=== PATIENT | female | born 1950 | race Caucasian/White ===

== ENCOUNTER → 2024-03-10 | Outpatient (CLI) | payer BC, MEDICARE, SELFPAY ==
--- NOTE | 2024-03-10 | XR_ITS ---
Examination: Lumbar spine 3 views TECHNIQUE: Standing lateral neutral position, standing lateral flexion, standing lateral extension total 3 views Exam date and time: March 10, 2024 1318 hours INDICATIONS: Low back pain years, lumbar spine surgery 2015 FINDINGS: No lumbar fracture Diffuse advanced lumbar degenerative disc disease Essentially no range of motion between flexion and extension IMPRESSION: Diffuse advanced lumbar degenerative disc disease
--- NOTE | 2024-03-10 | XR_ITS ---
Examination: PA lateral chest 2 views TECHNIQUE: Upright PA lateral chest 2 views Exam date and time: March 10, 2024 1316 hours Comparison January 03, 2022 INDICATIONS: Preop lumbar spine surgery FINDINGS: Minimal prominence left ventricle No pneumonia or pulmonary edema Prominent osteopenia IMPRESSION: No active disease
--- NOTE | 2024-03-10 13:44 | EKG_ITS ---
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
[2024-03-10 14:08] LABS: INR 1.4 (0.9-1.3); Partial Thromboplastin Time 20.3 Seconds (22.0-36.0); Prothrombin Time 14.9 Seconds (9.0-12.2)
[2024-03-10 14:19] LABS: Alanine Aminotransferase 27 U/L (10-49); Albumin, Serum 4.9 gm/dL (3.4-4.8); Albumin/Globulin Ratio 2.2 (1.2-2.2); Alkaline Phosphatase 83 U/L (46-116); Anion Gap 7 (7-16); BUN/Creatinine Ratio 26 Ratio (12-20); Bilirubin,Total 0.5 mg/dL (0.3-1.2); Blood Urea Nitrogen 21 mg/dL (9-23); Calcium 9.7 mg/dL (8.3-10.6); Calcium (Corrected) 9.7 mg/dL (8.5-10.1); Carbon Dioxide 30.6 mMol/L (20.0-31.0); Chloride 103 mMol/L (98-107); Creatinine (Component) 0.8 mg/dL (0.6-1.3); Globulin 2.2 gm/dL (2.3-3.5); Glucose 98 mg/dL (74-106); Osmolality,Calculated 284 (275-295); Sodium 141 mMol/L (136-145); Total Protein 7.1 gm/dL (5.7-8.2); eGFR > 60 See Note
[2024-03-10 14:30] LABS: Aspartate Amino Transferase 21 U/L (0-34)
== END | disposition home or self-care (01) ==
LOC: CDIM 12:05 → COPL 13:25
PROVIDERS: PCP Internal Medicine; Referring Provider Internal Medicine; Visit Provider Radiology Diagnostic Radiology
DX: Z01.818 Encounter for other preprocedural examination (principal); I10 Essential (primary) hypertension; M51.369 Other intervertebral disc degeneration, lumbar region without mention of lumbar back pain or lower extremity pain; I25.10 Atherosclerotic heart disease of native coronary artery without angina pectoris
CPT/HCPCS: 36415; 71046; 72120; 80053; 85610; 85730; 93005

== ENCOUNTER 2024-05-11 10:11 | Outpatient (AMB) | payer BC, MEDICARE, SELFPAY ==
--- NOTE | 2024-05-11 10:38 | PD.ORTHCLVIS ---
Vital signs 05/11/24 10:39 Height 1.63 m Height Method Stated Weight 67.755 kg Weight Measurement Method Standing Scale BMI 25.6 BP 157/83 H Blood Pressure Source Automatic Cuff Blood Pressure Location Left Upper Arm Position Sitting Respiration 18 Pulse 72 Pulse Source Monitor Temp 95.9 F L Temp Source Temporal Artery Scan Pulse Oximetry (%) 98 Oxygen Delivery Method Room Air Med/Allergies Allergies & Medications Allergies rofecoxib (From Vioxx) Allergy (Verified 05/11/24 10:39) Rash Medication Reconciliation azelastine 137 mcg-fluticasone 50 mcg/spray nasal spray 1 spray intranasal BID 07/03/17 [History Confirmed 05/11/24] cetirizine 10 mg capsule (Zyrtec) 10 mg PO UD 07/03/17 [History Confirmed 05/11/24] coenzyme Q10 100 mg capsule (CoQ-10) 100 mg PO QDAY 07/03/17 [History Confirmed 05/11/24] esomeprazole magnesium 20 mg capsule,delayed release (Nexium) 20 mg PO QDAY 07/03/17 [History Confirmed 05/11/24] estradiol 0.5 mg tablet 0.5 mg PO QDAY 07/03/17 [History Confirmed 05/11/24] levothyroxine 112 mcg tablet 112 mcg PO QDAY 07/03/17 [History Confirmed 05/11/24] medroxyprogesterone 2.5 mg tablet 2.5 mg PO QDAY 07/03/17 [History Confirmed 05/11/24] mometasone-formoterol HFA 200 mcg-5 mcg/actuation aerosol inhaler (Dulera) 2 puff inhalation BID 07/03/17 [History Confirmed 05/11/24] montelukast 10 mg tablet 10 mg PO QPM 07/03/17 [History Confirmed 05/11/24] amlodipine 5 mg tablet 5 mg PO BID 07/02/23 [History Confirmed 05/11/24] carvedilol 6.25 mg tablet 6.25 mg PO BID 07/02/23 [History Confirmed 05/11/24] lisinopril 10 mg tablet 10 mg PO QDAY 07/02/23 [History Confirmed 05/11/24] ticagrelor 90 mg tablet (Brilinta) 90 mg PO BID #60 tabs 07/02/23 [Rx Confirmed 05/11/24] tramadol 100 mg tablet 100 mg PO QDAY 07/02/23 [History Confirmed 05/11/24] tramadol 50 mg tablet 50 mg PO TID PRN Pain 07/02/23 [History Confirmed 05/11/24] Exam Exam Patient is in no acute distress and is cooperative with the examination today. Patient has antalgic gait Breathing is nonlabored. In no respiratory distress. Bilateral extremities were evaluated and demonstrates sensation intact to light touch. Palpable pedal pulses are present. No significant edema is present. Bilateral hips were examined. The patient has no pain with log roll of the hips. Internal rotation to 30 degrees and external rotation to 30 degrees is painless. Negative FADIR. Left knee was examined today. The right knee is in reasonable alignment. Range of motion from 0-120 degrees. Knee is stable to varus and valgus as well as AP translation with <5mm. Patient has a negative McMurrays. There is no pain with patellofemoral compression and no crepitus noted. The knee is nontender to palpation. Right knee range of motion is 0 to 110 degrees. She is significantly unstable in both extension and even more in flexion in both the AP plane and medial lateral plane. I can only view 1 view of the right knee. There is a radiolucency on the lateral aspect of the tibia. I do want to see the prior x-rays to see if there is subsidence or migration of the component Assessment and Plan Problem List (1) Pain in right knee: Status: Acute (2) Recurrent right knee instability: Status: Acute Plan: Janie is a 73-year-old female with right knee instability status post right total knee replacement. The pain is not there all the time but she is significantly unsteady stable on the right side. I would like to get x-rays that are new as well as the older ones to see if the radiolucency is new or old. She would like to do a smaller surgery if possible. She does not want a revision total knee replacement and just wants a liner exchange. I I discussed with her that this would depend on if the component was loose. 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 (8231-5199) MA Intake Visit Data Collection New Patient or Established: New Patient (never been to [facility]) Reason for Visit:: RIGHT KNEE PAIN Seen by Clinical Staff ONLY (RN/MA): No Wrapper Layer Required: No PCP or OBGYN visit in last 3 months: Yes Hx Now: No Do You Feel Safe at Home: Yes Authorities Contacted: N/A Questionairres Past Medical History Past Medical History Have you ever been diagnosed with any of the following: Neurological Problems Seizures: No Cardiology Problems Myocardial Infarction: No Cardiac Arrhythmia: No Atrial Fibrillation: No Angina: No Heart Murmur: No Coronary Artery Disease: No Atherosclerotic Heart Disease: No Peripheral Vascular Disease: No Hypercholesterolemia: No Aneurysm: No Congestive Heart Failure: No Congenital Heart Disease: No Valvular Heart Disease: No Rheumatic Fever: No Cardiomyopathy: No Edema: No Pericarditis: No Cellulitis: No Deep Vein Thrombosis: No Hypertension: Yes Hypotension: No Varicose Veins: No Respiratory Problems Chronic Obstructive Pulmonary Disease (COPD): Yes Asthma: Yes (USES INHALER NEEDED) Sleep Apnea: Yes (USES CPAP MACHINE) Stomache/Intestinal Problems Hepatitis: No Genital/Urinary Problems Renal Disease: No Kidney Stones: No Reproductive Problems Breast Cancer: No Endometriosis: Yes Genital Herpes: No Gonorrhea: No Pelvic Inflammatory Disease: No Previous Pregnancies: Yes (X1) Syphilis: No Uterine Prolapse: No Musculoskeletal Problems Arthritis: Yes Osteoporosis: No Degenerative Disk Disease: Yes Carpal Tunnel Syndrome: No Head,Eye,Nose,Throat Problems Cataracts: Yes Glaucoma: No Blind: No Retinal Detachment: No Macular Degeneration: No Chronic Ear Infections: No Deafness: No Eye Prosthesis: No Endocrine Problems Diabetes Mellitus Type 1: No Diabetes Mellitus Type 2: No Hyperthyroidism: No Hypothyroidism: Yes Other Problems Down Syndrome: No Developmental Delay: No Shingles: No Falls: Yes Blood Transfusions: No Blood Transfusion Reaction: No Anesthesia Reactions: No MRSA: No Chicken Pox: Yes Measles: Yes Mumps: Yes Pertussis: No Cancer: No Surgical History Total Knee Replacement: Yes (RIGHT 2016) Hysterectomy: No Pacemaker: No Thyroidectomy: No Subjective Visit Visit for: new patient and knee Immunization / Flu Flu Vaccine in the Last 12 Months: Yes Flu Vaccine Exclusion Criteria: Already Received History of Present Illness Chief complaint: Right knee pain Janie is a pleasant 73-year-old female with right knee pain status post right total knee replacement. She has left knee arthritis as well. The right knee pain has been ongoing for 7 to 8 years. Is affecting her quality life and happiness. She reports it feels unstable and she has difficulty going up and down stairs Pain Pain level (0-10): 6 Pain duration: ALL DAY Pain location: inside (medial) and anterior Pain quality: dull, aching and other (specify) (CLICKING) Pain timing: increases with activity and stairs Associated signs & symptoms: weakness and other (specify) Ambulatory data Ambulatory device: none Treatments Improvement with previous injections: No Improvement with PT: No Improvement with NSAIDS: no Review of Systems Review of Systems: All systems negative unless otherwise noted in HPI.
[2024-05-11 10:39] VITALS: BP 157/83; PULSE 72; RESP 18; TEMP 35.5; O2SAT 98; BMI 25.6
== END 2024-05-11 11:05 | disposition home or self-care (01) ==
LOC: HODSRG 10:11
PROVIDERS: PCP Orthopaedic Surgery; Referring Provider Orthopaedic Surgery; Supervising Provider Orthopaedic Surgery Adult Reconstructive Orthopaedic Surgery; Visit Provider Orthopaedic Surgery Adult Reconstructive Orthopaedic Surgery
DX: M25.561 Pain in right knee (principal); M23.51 Chronic instability of knee, right knee; Z96.651 Presence of right artificial knee joint; I10 Essential (primary) hypertension; E03.9 Hypothyroidism, unspecified; G47.30 Sleep apnea, unspecified
CPT/HCPCS: 99203; G0463

== ENCOUNTER → 2024-05-12 | Outpatient (CLI) | payer BC, MEDICARE, SELFPAY ==
--- NOTE | 2024-05-12 12:55 | XR_ITS ---
Examination: Right knee 4 views TECHNIQUE: AP oblique lateral axial right knee 4 views Exam date and time: May 12, 2024 1304 hours INDICATIONS: Total right knee replacement 8 years ago, right knee pain FINDINGS: Total right knee arthroplasty. Satisfactory alignment No fracture No loosening of the prosthetic components No patellar dislocation IMPRESSION: Total right knee arthroplasty with satisfactory alignment
== END | disposition home or self-care (01) ==
LOC: CDIM 12:50
PROVIDERS: PCP Internal Medicine; Referring Provider Orthopaedic Surgery Adult Reconstructive Orthopaedic Surgery; Visit Provider Orthopaedic Surgery Adult Reconstructive Orthopaedic Surgery
DX: Z96.651 Presence of right artificial knee joint (principal)
CPT/HCPCS: 73564

== ENCOUNTER 2024-05-28 10:56 | Outpatient (AMB) | payer BC, MEDICARE, SELFPAY ==
--- NOTE | 2024-05-28 11:09 | PD.ORTHCLVIS ---
Vital signs 05/28/24 11:10 Height 1.63 m Height Method Stated Weight 68.748 kg Weight Measurement Method Standing Scale BMI 25.9 BP 159/69 H Blood Pressure Source Automatic Cuff Blood Pressure Location Left Upper Arm Position Sitting Respiration 18 Pulse 72 Pulse Source Monitor Temp 96.2 F L Temp Source Temporal Artery Scan Pulse Oximetry (%) 97 Oxygen Delivery Method Room Air Med/Allergies Allergies & Medications Allergies rofecoxib (From Vioxx) Allergy (Verified 05/28/24 11:15) Rash Medication Reconciliation azelastine 137 mcg-fluticasone 50 mcg/spray nasal spray 1 spray intranasal BID 07/03/17 [History Confirmed 05/28/24] cetirizine 10 mg capsule (Zyrtec) 10 mg PO UD 07/03/17 [History Confirmed 05/28/24] coenzyme Q10 100 mg capsule (CoQ-10) 100 mg PO QDAY 07/03/17 [History Confirmed 05/28/24] esomeprazole magnesium 20 mg capsule,delayed release (Nexium) 20 mg PO QDAY 07/03/17 [History Confirmed 05/28/24] estradiol 0.5 mg tablet 0.5 mg PO QDAY 07/03/17 [History Confirmed 05/28/24] levothyroxine 112 mcg tablet 112 mcg PO QDAY 07/03/17 [History Confirmed 05/28/24] medroxyprogesterone 2.5 mg tablet 2.5 mg PO QDAY 07/03/17 [History Confirmed 05/28/24] mometasone-formoterol HFA 200 mcg-5 mcg/actuation aerosol inhaler (Dulera) 2 puff inhalation BID 07/03/17 [History Confirmed 05/28/24] montelukast 10 mg tablet 10 mg PO QPM 07/03/17 [History Confirmed 05/28/24] amlodipine 5 mg tablet 5 mg PO BID 07/02/23 [History Confirmed 05/28/24] carvedilol 6.25 mg tablet 6.25 mg PO BID 07/02/23 [History Confirmed 05/28/24] lisinopril 10 mg tablet 10 mg PO QDAY 07/02/23 [History Confirmed 05/28/24] ticagrelor 90 mg tablet (Brilinta) 90 mg PO BID #60 tabs 07/02/23 [Rx Confirmed 05/28/24] tramadol 100 mg tablet 100 mg PO QDAY 07/02/23 [History Confirmed 05/28/24] tramadol 50 mg tablet 50 mg PO TID PRN Pain 07/02/23 [History Confirmed 05/28/24] Exam Exam Patient is in no acute distress and is cooperative with the examination today. Patient has antalgic gait Breathing is nonlabored. In no respiratory distress. Bilateral extremities were evaluated and demonstrates sensation intact to light touch. Palpable pedal pulses are present. No significant edema is present. Bilateral hips were examined. The patient has no pain with log roll of the hips. Internal rotation to 30 degrees and external rotation to 30 degrees is painless. Negative FADIR. Left knee was examined today. The right knee is in reasonable alignment. Range of motion from 0-120 degrees. Knee is stable to varus and valgus as well as AP translation with <5mm. Patient has a negative McMurrays. There is no pain with patellofemoral compression and no crepitus noted. The knee is nontender to palpation. Right knee range of motion is 0 to 110 degrees. She is significantly unstable in both extension and even more in flexion in both the AP plane and medial lateral plane. I reviewed her x-rays. There is a radiolucency on the lateral aspect of the tibia. We reviewed all her x-rays and this radiolucency is still there. I am not certain that there is been no change in positions as this is there on the immediate postoperative films as well Assessment and Plan Problem List (1) Pain in right knee: Status: Acute (2) Recurrent right knee instability: Status: Acute Plan: Janie is a 73-year-old female with right knee instability status post right total knee replacement. She has pain and instability in her right knee where she feels that she cannot trust it. On exam he feels both stable and flexion and extension. I would recommend upsizing the poly. She does not want a full revision I think it upsizing the pocket provide her with more stability and that this is a reasonable option. She reports that she has been unable to get surgery because her insurance says that she needs to get it done at [facility]. We will talk to her insurance company to figure out what is going on. She will certainly benefit from a upsizing of the following liner. We discussed the risks and benefits of surgery. We discussed that there is a risk of infection, loosening, and medical complications from surgery. She would like to proceed. We would need to talk to her insurance company first as she is not sure if she can get it done at the local hospital here. Advanced Care Planning Discussion Advance care planning discussed with:: patient Office Procedures GNS Level of Care Nursing/Assessment Patient Status: Established Patient Nursing Assessment/Reassesment: Medication Reconciliation, Update PMH in EMR and Vital Signs Coordination of Care: Complex Care and Chronic Disease 1-5, Education Complex Pt/Fam, Consent,records obtained, informed consent, Results/Orders obtained and Staff clarify orders Established Patient Charge Established Patient Point Assignment: 95 Established Patient Point Charge: EP Level 3 (80-115) MA Intake Visit Data Collection New Patient or Established: Established Patient (seen at [facility] within 3 years) Reason for Visit:: XRAY RESULTS/BL KNEE Seen by Clinical Staff ONLY (RN/MA): No Video Systems Engineer Required: No PCP or OBGYN visit in last 3 months: Yes Hx Now: No Do You Feel Safe at Home: Yes Authorities Contacted: N/A Questionairres Past Medical History Past Medical History Have you ever been diagnosed with any of the following: Neurological Problems Seizures: No Cardiology Problems Myocardial Infarction: No Cardiac Arrhythmia: No Atrial Fibrillation: No Angina: No Heart Murmur: No Coronary Artery Disease: No Atherosclerotic Heart Disease: No Peripheral Vascular Disease: No Hypercholesterolemia: No Aneurysm: No Congestive Heart Failure: No Congenital Heart Disease: No Valvular Heart Disease: No Rheumatic Fever: No Cardiomyopathy: No Edema: No Pericarditis: No Cellulitis: No Deep Vein Thrombosis: No Hypertension: Yes Hypotension: No Varicose Veins: No Respiratory Problems Chronic Obstructive Pulmonary Disease (COPD): Yes Asthma: Yes (USES INHALER NEEDED) Sleep Apnea: Yes (USES CPAP MACHINE) Smoking: No Smoking Exposure: No Stomache/Intestinal Problems Hepatitis: No Genital/Urinary Problems Renal Disease: No Kidney Stones: No Reproductive Problems Breast Cancer: No Endometriosis: Yes Genital Herpes: No Gonorrhea: No Pelvic Inflammatory Disease: No Previous Pregnancies: Yes (X1) Syphilis: No Uterine Prolapse: No Musculoskeletal Problems Arthritis: Yes Osteoporosis: No Degenerative Disk Disease: Yes Carpal Tunnel Syndrome: No Head,Eye,Nose,Throat Problems Cataracts: Yes Glaucoma: No Blind: No Retinal Detachment: No Macular Degeneration: No Chronic Ear Infections: No Deafness: No Eye Prosthesis: No Endocrine Problems Diabetes Mellitus Type 1: No Diabetes Mellitus Type 2: No Hyperthyroidism: No Hypothyroidism: Yes Other Problems Down Syndrome: No Developmental Delay: No Shingles: No Falls: Yes Blood Transfusions: No Blood Transfusion Reaction: No Anesthesia Reactions: No MRSA: No Chicken Pox: Yes Measles: Yes Mumps: Yes Pertussis: No Cancer: No Surgical History Total Knee Replacement: Yes (RIGHT 2017) Hysterectomy: No Pacemaker: No Thyroidectomy: No Subjective Visit Visit for: follow up visit, knee (BILATERAL) and x-rays (RESULTS) Immunization / Flu Flu Vaccine in the Last 12 Months: No Flu Vaccine Exclusion Criteria: No Exclusion Criteria History of Present Illness Chief complaint: Right knee pain Janie is a pleasant 73-year-old female with right knee pain status post right total knee replacement. She has left knee arthritis as well. The right knee pain has been ongoing for 7 to 8 years. Thgis Is affecting her quality life and happiness. She reports it feels unstable and she has difficulty going up and down stairs We did obtain her Old x-rays and there is a radiolucency laterally that is consistent on all her x-rays. We did also obtain her op report and there is certainly room to go up in size as she feels unstable in both flexion and extension Pain Pain level (0-10): 8 Pain duration: CONSTANT Pain location: inside (medial) Pain quality: aching Pain timing: increases with activity and stairs Associated signs & symptoms: none Ambulatory data Ambulatory device: none Treatments Improvement with previous injections: No Improvement with PT: No Improvement with NSAIDS: no Review of Systems Review of Systems: All systems negative unless otherwise noted in HPI.
[2024-05-28 11:10] VITALS: BP 159/69; PULSE 72; RESP 18; TEMP 35.7; O2SAT 97; BMI 25.9
== END 2024-05-28 11:23 | disposition home or self-care (01) ==
LOC: HODSRG 10:56
PROVIDERS: PCP Orthopaedic Surgery; Referring Provider Orthopaedic Surgery; Supervising Provider Orthopaedic Surgery Adult Reconstructive Orthopaedic Surgery; Visit Provider Orthopaedic Surgery Adult Reconstructive Orthopaedic Surgery
DX: M25.361 Other instability, right knee (principal); Z96.651 Presence of right artificial knee joint
CPT/HCPCS: 99213; G0463

== ENCOUNTER 2024-06-14 05:30 | Day surgery (SDC) | payer BC, MEDICARE, SELFPAY ==
[2024-06-09 10:40] VITALS: BMI 26.1
[2024-06-09 12:32] LABS: Basophils # (Auto) 0.1 Thou/mm3 (0.0-0.2); Basophils % (Auto) 1 % (0-2.5); Eosinophils # (Auto) 0.4 Thou/mm3 (0.0-0.5); Eosinophils % (Auto) 7 % (0-10); Hematocrit 39.9 % (36.0-46.0); Immature Granulocytes % (Auto) 0 % (0-0); Immature Granulocytes Auto 0.02 Thou/mm3 (0.00-0.00); Lymphocytes # (Auto) 1.6 Thou/mm3 (1.0-4.8); Lymphocytes % (Auto) 31 % (10-50); Mean Corpuscular HGB Conc 32.6 g/dl (31.0-37.0); Mean Corpuscular Hemoglobin 30.7 pg (25.0-35.0); Mean Corpuscular Volume 94 fL (80-100); Monocytes # (Auto) 0.6 Thou/mm3 (0.0-0.8); Monocytes % (Auto) 12 % (0-12); Neutrophils # (Auto) 2.6 Thou/mm3 (1.8-7.7); Neutrophils % (Auto) 49 % (37-80); Nucleated Red Blood Cell % 0 /100 WBC (0); Platelet Count 193 Thou/mm3 (140-440); RDW Standard Deviation 44.2 fL (36.4-46.3); Red Blood Count 4.23 Miln/mm3 (4.00-5.20); White Blood Count 5.3 Thou/mm3 (3.6-11.0)
[2024-06-09 12:41] LABS: Alanine Aminotransferase 21 U/L (10-49); Albumin, Serum 4.4 gm/dL (3.4-4.8); Albumin/Globulin Ratio 1.8 (1.2-2.2); Alkaline Phosphatase 73 U/L (46-116); Anion Gap 8 (7-16); Aspartate Amino Transferase 30 U/L (0-34); BUN/Creatinine Ratio 24 Ratio (12-20); Bilirubin,Total 0.6 mg/dL (0.3-1.2); Blood Urea Nitrogen 22 mg/dL (9-23); Calcium 9.3 mg/dL (8.3-10.6); Calcium (Corrected) 9.3 mg/dL (8.5-10.1); Carbon Dioxide 29.1 mMol/L (20.0-31.0); Chloride 103 mMol/L (98-107); Creatinine (Component) 0.9 mg/dL (0.6-1.3); Estimated Creatinine Clearance 52.3 mL/min (>60); Globulin 2.5 gm/dL (2.3-3.5); Glucose 98 mg/dL (74-106); Osmolality,Calculated 282 (275-295); Partial Thromboplastin Time 26.2 Seconds (22.0-36.0); Potassium 4.5 mMol/L (3.4-5.1); Prothrombin Time 11.2 Seconds (9.0-12.2); Sodium 140 mMol/L (136-145); Total Protein 6.9 gm/dL (5.7-8.2); eGFR > 60 See Note
--- NOTE | 2024-06-11 14:54 | SUR.PREOP ---
Cardiac history and records reviewed with Dr Carson.
[2024-06-14] VITALS (14 sets, daily range): BP systolic 123–160; BP diastolic 61–99; PULSE 58–75; RESP 14–20; TEMP 36.3–36.7; O2SAT 96–100; BMI 25.8
[2024-06-14] MEDS: ACETAMINOPHEN 325 MG TABLET 650 MG PO (06:46)
[2024-06-14] MEDS: PREGABALIN 75 MG CAPSULE PO (06:47)
[2024-06-14] MEDS: RINGERS LACTATED 1000 ML 1,000 ML 20 ML IV (06:48)
--- NOTE | 2024-06-14 07:30 | SUR.PREOP ---
Patient expressed gratitude for prayer before their procedure.
--- NOTE | 2024-06-14 08:44 | SUR.OPER ---
[id number] 15[facility] Posterior stabalized high flexion articular insert A/P 48 mm M/L 68 mm Ref: [id number] Lot: [id number] Exp. 04/05/33
--- NOTE | 2024-06-14 08:47 | XR_ITS ---
Examination: Right knee 2 views TECHNIQUE: Portable AP lateral right knee 2 views Exam date and time: June 14, 2024 0824 hours INDICATIONS: Postop knee replacement FINDINGS: Total right knee arthroplasty. Satisfactory alignment. Moderate osteopenia. No fracture IMPRESSION: Total right knee arthroplasty with satisfactory alignment
--- NOTE | 2024-06-14 08:50 | ESOP_ITS ---
Date of Procedure 06/14/24 Pre Op Diagnosis right knee instability Post Op Diagnosis right knee instability Procedure right knee polyethylene upsizing Findings knee instability Procedure Description Indications: Patient is a pleasant 74-year-old female with instability of the right knee. She underwent a total knee replacement and reports that she has been feeling like it gives out. We thus discussed upsizing of the poly. We discussed with her that we could do a full revision as well as there is a lucency in the tibia. We did look at prior films and it was stable and was there on immediate postoperative films. We discussed the risks of surgery including infection, persistent instability Procedure in detail: Patient was brought to the operating room. The right knee was prepped and draped in usual sterile fashion. A midline incision was made. A culture was taken. The original incision and made a medial parapatellar arthrotomy. Culture was taken from the femur. The knee was found to be unstable in both flexion and extension. We trialed different polys and the 15 mm poly provided adequate stability in both flexion and extension. I did not want upsize it anymore due to limiting extension. The patella tracks centrally. We then removed the trial and irrigated the knee copiously with Betadine and saline. We then inserted a 15 mm size 3?4 polyethylene into the knee. We then used the locking gun to insert the poly. The patient was closed in the usual sterile fashion Anesthesia GETA Drains nonw Implants villeda neph Pathology / specimen None Pathology comment: none Estimated Blood Loss 50 Disposition same day Surgeon Bryan Marcus MD Surgical Staff Operation Date: 06/14/24 07:30 Case Staff MEDICAL RECEPTIONIST MEDICAL ASSISTANT: Vidal Joiner RNinside sales coordinator: Erin Wells
--- NOTE | 2024-06-14 09:15 | SUR.PHASEI ---
0915 Patient arrived to recovery resting comfortably in [facility], on oxygen 8L via oxy mask with a nasal airway in place, breathing unlabored, vital signs stable, dressing intact to right lower extremity; prineo, abd, webril, jayne wraps, no bleeding noted, bilateral dorsalis pedis pulses present when palpated, patient has good circulation to right lower extremity; skin color normal for patient and warm to touch, capillary refil is one second to right toes, lung sounds clear upon auscultation, report received from Morales QUEVEDO/Zakia YORK/Vidal VOSS
--- NOTE | 2024-06-14 09:19 | SUR.PHASEI ---
0919 Post spinal anesthesia assessment via ice, patient has dermatome sensation at T8-costal margin
--- NOTE | 2024-06-14 09:30 | SUR.PHASEI ---
0930 XRAY complete per MD order
--- NOTE | 2024-06-14 09:55 | SUR.PHASEII ---
0903 Patient drinking water; tolerating well
--- NOTE | 2024-06-14 10:45 | SUR.PHASEII ---
1045 Patient ate a jello, apple sauce and drinking fluids; tolerating well, denies nausea
--- NOTE | 2024-06-14 11:30 | SUR.PHASEII ---
1130 Post spinal anesthesia complete, patient has dermatome sensation at S2-perineum
--- NOTE | 2024-06-14 11:38 | SUR.PHASEII ---
patient ate a sandwich, potato chips; tolerated well
--- NOTE | 2024-06-14 12:09 | SUR.PHASEII ---
1209 Patient cleared by physical therapy to proceed with discharge
--- NOTE | 2024-06-14 12:31 | SUR.PHASEII ---
Addendum entered by Hannah Sunshine RN 06/14/24 15:21: patient voided in the restroom prior to discharge Original Note: 1231 Patient meets discharge criteria from recovery, awake and alert, breathing unlabored, vital signs stable, denies pain, dressing intact; no bleeding noted, patient able to dress herself into her clothing, denies nausea, discharge instructions given to patient and patients with teach-back approach, both receptive, patients signed discharge instructions instructions. Patient given all her belongings prior to discharge, transported via wheelchair and left in a private vehicle.
== END 2024-06-14 12:31 | disposition home or self-care (01) ==
PROVIDERS: Anesthesiology; PCP Internal Medicine; Referring Provider Orthopaedic Surgery Adult Reconstructive Orthopaedic Surgery; Visit Provider Orthopaedic Surgery Adult Reconstructive Orthopaedic Surgery
PROC: (CPT 27487; principal; 2024-06-14 07:30)
DX: M25.361 Other instability, right knee (principal); I10 Essential (primary) hypertension; Z96.651 Presence of right artificial knee joint
CPT/HCPCS: 27486; 36415; 73560; 80053; 85025; 85610; 85730; 87070; 87075; 87205; 97162; A4217; C1776; J0131; J0690; J1100; J2250; J2371; J2405; J2704; J2795; J3010; J3490; J7030; J7120; J7999; A4648; A4649; A9270

== ENCOUNTER 2024-06-29 13:28 | Outpatient (AMB) | payer BC, MEDICARE, SELFPAY ==
--- NOTE | 2024-06-29 13:52 | PD.ORTHCLVIS ---
Vital signs 06/29/24 13:53 Height 1.63 m Height Method Stated Weight 67.642 kg Weight Measurement Method Standing Scale BMI 25.4 BP 139/75 H Blood Pressure Source Automatic Cuff Blood Pressure Location Right Upper Arm Position Sitting Respiration 18 Pulse 77 Pulse Source Monitor Temp 96.9 F Temp Source Temporal Artery Scan Pulse Oximetry (%) 96 Oxygen Delivery Method Room Air Med/Allergies Allergies & Medications Allergies rofecoxib (From Vioxx) Allergy (Verified 06/29/24 13:54) Rash Medication Reconciliation azelastine 137 mcg-fluticasone 50 mcg/spray nasal spray 1 spray intranasal BID 07/03/17 [History Confirmed 06/29/24] cetirizine 10 mg capsule (Zyrtec) 10 mg PO UD 07/03/17 [History Confirmed 06/29/24] levothyroxine 112 mcg tablet 112 mcg PO QDAY 07/03/17 [History Confirmed 06/29/24] montelukast 10 mg tablet 10 mg PO QPM 07/03/17 [History Confirmed 06/29/24] lisinopril 10 mg tablet 10 mg PO QDAY 07/02/23 [History Confirmed 06/29/24] ticagrelor 90 mg tablet (Brilinta) 90 mg PO BID #60 tabs 07/02/23 [Rx Confirmed 06/29/24] tramadol 100 mg tablet 100 mg PO QDAY 07/02/23 [History Confirmed 06/29/24] tramadol 50 mg tablet 50 mg PO Q12H PRN Pain 07/02/23 [History Confirmed 06/29/24] albuterol sulfate 90 mcg/actuation aerosol inhaler 2 inh inhalation Q6H PRN shortness of breath or wheezing 06/09/24 [History Confirmed 06/29/24] carvedilol 12.5 mg tablet 12.5 mg PO Q12H 06/09/24 [History Confirmed 06/29/24] estradiol 10 mcg vaginal tablet (Yuvafem) 10 mcg .Route 2 X WEEKLY 06/09/24 [History Confirmed 06/29/24] fluticasone fur. 100 mcg-umeclid 62.5 mcg-vilant 25 mcg inhalat.powder (Trelegy Ellipta) 1 inh inhalation Q24H 06/09/24 [History Confirmed 06/29/24] rosuvastatin 40 mg tablet 40 mg PO DAILY 06/09/24 [History Confirmed 06/29/24] acetaminophen 500 mg tablet (Acetaminophen Extra Strength) 1,000 mg (2 x 500 mg) PO Q6H PRN pain #90 tabs 06/14/24 [Rx Confirmed 06/29/24] aspirin 81 mg tablet,delayed release 81 mg PO BID #60 tabs 06/14/24 [Rx Confirmed 06/29/24] azerlastine 06/14/24 [History Confirmed 06/29/24] doxycycline hyclate 100 mg tablet 100 mg PO BID #14 tabs 06/14/24 [Rx Confirmed 06/29/24] gabapentin 300 mg capsule 300 mg PO .qhs #30 caps 06/14/24 [Rx Confirmed 06/29/24] sennosides 8.6 mg-docusate sodium 50 mg tablet (Senna-S) 1 tab-cap PO QDAY #30 tabs 06/14/24 [Rx Confirmed 06/29/24] oxycodone 5 mg tablet 5 mg PO Q6H PRN pain #28 tabs 06/21/24 [Rx Confirmed 06/29/24] Exam Exam Patient is in no acute distress and is cooperative with the examination today. Patient has antalgic gait Breathing is nonlabored. In no respiratory distress. Bilateral extremities were evaluated and demonstrates sensation intact to light touch. Palpable pedal pulses are present. No significant edema is present. Bilateral hips were examined. The patient has no pain with log roll of the hips. Internal rotation to 30 degrees and external rotation to 30 degrees is painless. Negative FADIR. Left knee was examined today. The right knee is in reasonable alignment. Range of motion from 0-120 degrees. Knee is stable to varus and valgus as well as AP translation with <5mm. Patient has a negative McMurrays. There is no pain with patellofemoral compression and no crepitus noted. The knee is nontender to palpation. Right knee range of motion is 0 to 110 degrees. Incision looks clean dry and intact I reviewed her x-rays. There is a radiolucency on the lateral aspect of the tibia. We reviewed all her x-rays and this radiolucency is still there. I am not certain that there is been no change in positions as this is there on the immediate postoperative films as well Assessment and Plan Problem List (1) Pain in right knee: Status: Acute (2) Recurrent right knee instability: Status: Acute Plan: Janie is a 73-year-old female with right knee instability status post right total knee replacement. She is status post revision knee replacement with upsizing of the poly. Advanced Care Planning Discussion Advance care planning discussed with:: patient Office Procedures GNS Level of Care Nursing/Assessment Patient Status: Established Patient Nursing Assessment/Reassesment: Medication Reconciliation, Update PMH in EMR and Vital Signs Coordination of Care: Complex Care and Chronic Disease 1-5, Education Complex Pt/Fam, Consent,records obtained, informed consent, Results/Orders obtained and Staff clarify orders Special Needs: Language special needs Established Patient Charge Established Patient Point Assignment: 95 Established Patient Point Charge: EP Level 3 (80-115) MA Intake Visit Data Collection New Patient or Established: Established Patient (seen at [facility] within 3 years) Reason for Visit:: 2 WEEK POST OP RIGHT KNEE REVISION Seen by Clinical Staff ONLY (RN/MA): No Verbal consent obtained for Telemed visit?: No Coating Technician Required: No PCP or OBGYN visit in last 3 months: Yes Hx Now: No Do You Feel Safe at Home: Yes Authorities Contacted: N/A Questionairres Past Medical History Past Medical History Have you ever been diagnosed with any of the following: Neurological Problems Seizures: No Cardiology Problems Myocardial Infarction: No Cardiac Arrhythmia: No Atrial Fibrillation: No Angina: No Heart Murmur: No Coronary Artery Disease: No Atherosclerotic Heart Disease: No Peripheral Vascular Disease: No Hypercholesterolemia: No Aneurysm: No Congestive Heart Failure: No Congenital Heart Disease: No Valvular Heart Disease: No Rheumatic Fever: No Cardiomyopathy: No Edema: No Pericarditis: No Cellulitis: No Deep Vein Thrombosis: No Hypertension: Yes Hypotension: No Varicose Veins: No Respiratory Problems Chronic Obstructive Pulmonary Disease (COPD): Yes Asthma: Yes (USES INHALER NEEDED) Sleep Apnea: Yes (USES CPAP MACHINE) Smoking: No Smoking Exposure: No Stomache/Intestinal Problems Hepatitis: No Gall Bladder Disease: Yes Gastroesophageal Reflux Disease: Yes Genital/Urinary Problems Renal Disease: No Kidney Stones: No Reproductive Problems Breast Cancer: No Endometriosis: Yes Genital Herpes: No Gonorrhea: No Pelvic Inflammatory Disease: No Previous Pregnancies: Yes (X1) Syphilis: No Uterine Prolapse: No Musculoskeletal Problems Arthritis: Yes Osteoporosis: No Degenerative Disk Disease: Yes Carpal Tunnel Syndrome: No Head,Eye,Nose,Throat Problems Cataracts: Yes Glaucoma: No Blind: No Retinal Detachment: No Macular Degeneration: No Chronic Ear Infections: No Deafness: No Eye Prosthesis: No Endocrine Problems Diabetes Mellitus Type 1: No Diabetes Mellitus Type 2: No Hyperthyroidism: No Hypothyroidism: Yes Other Problems Down Syndrome: No Developmental Delay: No Shingles: No Falls: Yes Blood Transfusions: No Blood Transfusion Reaction: No Anesthesia Reactions: No MRSA: No Chicken Pox: Yes Measles: Yes Mumps: Yes Pertussis: No Cancer: No Surgical History Total Knee Replacement: Yes (RIGHT 2017) Hysterectomy: No Pacemaker: No Thyroidectomy: No Subjective Visit Visit for: follow up visit, post op #1 and knee Immunization / Flu Flu Vaccine in the Last 12 Months: Yes Flu Vaccine Exclusion Criteria: Already Received History of Present Illness Chief complaint: 2 wk post op right knee revision Janie is a pleasant 73-year-old female with right knee pain status post right total knee replacement. We did upsizing of the poly and she is doing well Personal History Occupation: disabled Pain Pain level (0-10): 4 Pain duration: all day Pain location: inside (medial), outside (lateral), anterior and posterior Pain quality: sharp, dull and aching Pain timing: increases with activity Associated signs & symptoms: none Ambulatory data Ambulatory device: none Treatments Improvement with previous injections: No Improvement with PT: No Improvement with NSAIDS: no Review of Systems Review of Systems: All systems negative unless otherwise noted in HPI.
[2024-06-29 13:53] VITALS: BP 139/75; PULSE 77; RESP 18; TEMP 36.1; O2SAT 96; BMI 25.4
== END 2024-06-29 14:18 | disposition home or self-care (01) ==
LOC: HODSRG 13:28
PROVIDERS: PCP Orthopaedic Surgery; Referring Provider Orthopaedic Surgery; Supervising Provider Orthopaedic Surgery Adult Reconstructive Orthopaedic Surgery; Visit Provider Orthopaedic Surgery Adult Reconstructive Orthopaedic Surgery
DX: M25.561 Pain in right knee (principal); M23.51 Chronic instability of knee, right knee; Z96.651 Presence of right artificial knee joint; I10 Essential (primary) hypertension; G47.30 Sleep apnea, unspecified; K21.9 Gastro-esophageal reflux disease without esophagitis; J44.9 Chronic obstructive pulmonary disease, unspecified; E03.9 Hypothyroidism, unspecified
CPT/HCPCS: 99213; G0463

== ENCOUNTER 2024-07-22 13:34 | Outpatient (AMB) | payer BC, MEDICARE, SELFPAY ==
[2024-07-22 14:07] VITALS: BP 130/71; PULSE 73; RESP 19; TEMP 36.1; O2SAT 96; BMI 25.0
--- NOTE | 2024-07-22 14:07 | PD.ORTHCLVIS ---
Vital signs 07/22/24 14:07 Height 1.63 m Height Method Stated Weight 66.678 kg Weight Measurement Method Standing Scale BMI 25.0 BP 130/71 Blood Pressure Source Automatic Cuff Blood Pressure Location Right Upper Arm Position Sitting Respiration 19 Pulse 73 Pulse Source Monitor Temp 96.9 F Temp Source Temporal Artery Scan Pulse Oximetry (%) 96 Oxygen Delivery Method Room Air Med/Allergies Allergies & Medications Allergies rofecoxib (From Vioxx) Allergy (Verified 07/22/24 14:08) Rash Medication Reconciliation azelastine 137 mcg-fluticasone 50 mcg/spray nasal spray 1 spray intranasal BID 07/03/17 [History Confirmed 07/22/24] cetirizine 10 mg capsule (Zyrtec) 10 mg PO UD 07/03/17 [History Confirmed 07/22/24] levothyroxine 112 mcg tablet 112 mcg PO QDAY 07/03/17 [History Confirmed 07/22/24] montelukast 10 mg tablet 10 mg PO QPM 07/03/17 [History Confirmed 07/22/24] lisinopril 10 mg tablet 10 mg PO QDAY 07/02/23 [History Confirmed 07/22/24] ticagrelor 90 mg tablet (Brilinta) 90 mg PO BID #60 tabs 07/02/23 [Rx Confirmed 07/22/24] tramadol 100 mg tablet 100 mg PO QDAY 07/02/23 [History Confirmed 07/22/24] tramadol 50 mg tablet 50 mg PO Q12H PRN Pain 07/02/23 [History Confirmed 07/22/24] albuterol sulfate 90 mcg/actuation aerosol inhaler 2 inh inhalation Q6H PRN shortness of breath or wheezing 06/09/24 [History Confirmed 07/22/24] carvedilol 12.5 mg tablet 12.5 mg PO Q12H 06/09/24 [History Confirmed 07/22/24] estradiol 10 mcg vaginal tablet (Yuvafem) 10 mcg .Route 2 X WEEKLY 06/09/24 [History Confirmed 07/22/24] fluticasone fur. 100 mcg-umeclid 62.5 mcg-vilant 25 mcg inhalat.powder (Trelegy Ellipta) 1 inh inhalation Q24H 06/09/24 [History Confirmed 07/22/24] rosuvastatin 40 mg tablet 40 mg PO DAILY 06/09/24 [History Confirmed 07/22/24] acetaminophen 500 mg tablet (Acetaminophen Extra Strength) 1,000 mg (2 x 500 mg) PO Q6H PRN pain #90 tabs 06/14/24 [Rx Confirmed 07/22/24] aspirin 81 mg tablet,delayed release 81 mg PO BID #60 tabs 06/14/24 [Rx Confirmed 07/22/24] azerlastine 06/14/24 [History Confirmed 07/22/24] doxycycline hyclate 100 mg tablet 100 mg PO BID #14 tabs 06/14/24 [Rx Confirmed 07/22/24] gabapentin 300 mg capsule 300 mg PO .qhs #30 caps 06/14/24 [Rx Confirmed 07/22/24] sennosides 8.6 mg-docusate sodium 50 mg tablet (Senna-S) 1 tab-cap PO QDAY #30 tabs 06/14/24 [Rx Confirmed 07/22/24] oxycodone 5 mg tablet 5 mg PO Q6H PRN pain #28 tabs 06/21/24 [Rx Confirmed 07/22/24] Exam Exam Patient is in no acute distress and is cooperative with the examination today. Patient has antalgic gait Breathing is nonlabored. In no respiratory distress. Bilateral extremities were evaluated and demonstrates sensation intact to light touch. Palpable pedal pulses are present. No significant edema is present. Bilateral hips were examined. The patient has no pain with log roll of the hips. Internal rotation to 30 degrees and external rotation to 30 degrees is painless. Negative FADIR. Left knee was examined today. The right knee is in reasonable alignment. Range of motion from 0-120 degrees. Knee is stable to varus and valgus as well as AP translation with <5mm. Patient has a negative McMurrays. There is no pain with patellofemoral compression and no crepitus noted. The knee is nontender to palpation. Right knee range of motion is 0 to 110 degrees. Incision looks clean dry and intact Assessment and Plan Problem List (1) Pain in right knee: Status: Acute (2) Recurrent right knee instability: Status: Acute Plan: Janie is a 73-year-old female with right knee instability status post right total knee replacement. She is status post revision knee replacement with upsizing of the poly. She is doing well Advanced Care Planning Discussion Advance care planning discussed with:: patient Office Procedures GNS Level of Care Nursing/Assessment Patient Status: Established Patient Nursing Assessment/Reassesment: Medication Reconciliation, Update PMH in EMR and Vital Signs Coordination of Care: Complex Care and Chronic Disease 1-5, Education Complex Pt/Fam, Consent,records obtained, informed consent, Lab and Imaging orders, Results/Orders obtained and Staff clarify orders Established Patient Charge Established Patient Point Assignment: 110 Established Patient Point Charge: EP Level 3 (80-115) MA Intake Visit Data Collection New Patient or Established: Established Patient (seen at [facility] within 3 years) Reason for Visit:: F/U 6 WEEKS POST OP Seen by Clinical Staff ONLY (RN/MA): No Verbal consent obtained for Telemed visit?: No PCP or OBGYN visit in last 3 months: Yes Hx Now: No Do You Feel Safe at Home: Yes Authorities Contacted: N/A Questionairres Past Medical History Past Medical History Have you ever been diagnosed with any of the following: Neurological Problems Seizures: No Cardiology Problems Myocardial Infarction: No Cardiac Arrhythmia: No Atrial Fibrillation: No Angina: No Heart Murmur: No Coronary Artery Disease: Yes Atherosclerotic Heart Disease: No Peripheral Vascular Disease: No Hypercholesterolemia: Yes Aneurysm: No Congestive Heart Failure: No Congenital Heart Disease: No Valvular Heart Disease: No Rheumatic Fever: No Cardiomyopathy: No Edema: No Pericarditis: No Cellulitis: No Deep Vein Thrombosis: No Hypertension: Yes Hypotension: No Varicose Veins: No Respiratory Problems Chronic Obstructive Pulmonary Disease (COPD): Yes Asthma: Yes (USES INHALER NEEDED) Sleep Apnea: Yes (USES CPAP MACHINE) Smoking: No Smoking Exposure: No Stomache/Intestinal Problems Hepatitis: No Gall Bladder Disease: Yes Gastroesophageal Reflux Disease: Yes Genital/Urinary Problems Renal Disease: No Kidney Stones: No Reproductive Problems Breast Cancer: No Endometriosis: Yes Genital Herpes: No Gonorrhea: No Pelvic Inflammatory Disease: No Previous Pregnancies: Yes (X1) Syphilis: No Uterine Prolapse: No Musculoskeletal Problems Arthritis: Yes Osteoporosis: No Degenerative Disk Disease: Yes Carpal Tunnel Syndrome: No Head,Eye,Nose,Throat Problems Cataracts: Yes Glaucoma: No Blind: No Retinal Detachment: No Macular Degeneration: No Chronic Ear Infections: No Deafness: No Eye Prosthesis: No Endocrine Problems Diabetes Mellitus Type 1: No Diabetes Mellitus Type 2: No Hyperthyroidism: No Hypothyroidism: Yes Other Problems Down Syndrome: No Developmental Delay: No Shingles: No Falls: Yes Blood Transfusions: No Blood Transfusion Reaction: No Anesthesia Reactions: No MRSA: No Chicken Pox: Yes Measles: Yes Mumps: Yes Pertussis: No Cancer: No Surgical History Total Knee Replacement: Yes (RIGHT 2017) Hysterectomy: No Pacemaker: No Thyroidectomy: No Subjective Visit Visit for: follow up visit, post op #2 and knee Immunization / Flu Flu Vaccine in the Last 12 Months: Yes Flu Vaccine Exclusion Criteria: Already Received History of Present Illness Chief complaint: F/U 6 WKS POST OP Janie is a pleasant 73-year-old female with right knee pain status post right total knee replacement. 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
== END 2024-07-22 14:14 | disposition home or self-care (01) ==
LOC: HODSRG 13:34
PROVIDERS: PCP Orthopaedic Surgery; Referring Provider Orthopaedic Surgery; Supervising Provider Orthopaedic Surgery Adult Reconstructive Orthopaedic Surgery; Visit Provider Orthopaedic Surgery Adult Reconstructive Orthopaedic Surgery
DX: M25.561 Pain in right knee (principal); M23.51 Chronic instability of knee, right knee; Z96.651 Presence of right artificial knee joint; I10 Essential (primary) hypertension; E78.00 Pure hypercholesterolemia, unspecified; G47.30 Sleep apnea, unspecified; I25.10 Atherosclerotic heart disease of native coronary artery without angina pectoris
CPT/HCPCS: 99213; G0463

== ENCOUNTER → 2024-08-18 | Outpatient (CLI) | payer BC, MEDICARE, SELFPAY ==
[2024-08-18 09:58] LABS: Collection Type, Urine Clean Catch; WBC,Urine 0 /hpf (0-5)
[2024-08-18 10:28] LABS: Basophils # (Auto) 0.1 Thou/mm3 (0.0-0.2); Basophils % (Auto) 1 % (0-2.5); Eosinophils # (Auto) 0.2 Thou/mm3 (0.0-0.5); Eosinophils % (Auto) 5 % (0-10); Hematocrit 41.5 % (36.0-46.0); Hemoglobin 13.4 g/dL (12.0-16.0); Immature Granulocytes % (Auto) 0 % (0-0); Lymphocytes # (Auto) 1.2 Thou/mm3 (1.0-4.8); Lymphocytes % (Auto) 30 % (10-50); Mean Corpuscular HGB Conc 32.3 g/dl (31.0-37.0); Mean Corpuscular Hemoglobin 30.9 pg (25.0-35.0); Mean Corpuscular Volume 96 fL (80-100); Monocytes # (Auto) 0.5 Thou/mm3 (0.0-0.8); Monocytes % (Auto) 13 % (0-12); Neutrophils % (Auto) 51 % (37-80); Nucleated Red Blood Cell % 0 /100 WBC (0); Platelet Count 171 Thou/mm3 (140-440); RDW Standard Deviation 49.8 fL (36.4-46.3); Red Blood Count 4.34 Miln/mm3 (4.00-5.20); White Blood Count 3.9 Thou/mm3 (3.6-11.0)
[2024-08-18 10:33] LABS: Glucose Estimated Average 94 mg/dL (80-131); Hemoglobin A1C 4.9 % Hgb (4.8-6.0); Partial Thromboplastin Time 25.8 Seconds (22.0-36.0); Prothrombin Time 11.4 Seconds (9.0-12.2)
[2024-08-18 10:42] LABS: Bacteria,Urine Rare; Bilirubin,Urine Negative (Negative); Blood,Urine Negative (Negative); Clarity,Urine Clear (Clear/Hazy); Color,Urine Colorless (Lt Yel-Yel); Glucose, Urine Negative (Negative); Ketones,Urine Negative (Negative); Leukocyte Esterase,Urine Negative (Negative); Nitrite,Urine Negative (Negative); PH,Urine 7.5 (5.0-7.0); Protein,Urine Negative (Neg - Trace); RBC,Urine 2 /hpf (0-3); Specific Gravity,Urine 1.005 (1.001-1.035); Squamous Epithelial Cell,Urine < 1 /hpf (0-5); Urobilinogen,Urine Negative mg/dL (0.0-1.0)
[2024-08-18 10:42] LABS: Vitamin B12 532 pg/mL (211-911); Vitamin D 25 Hydroxy Total 58.7 ng/mL (7.3-40.2)
[2024-08-18 11:10] LABS: Alanine Aminotransferase 20 U/L (10-49); Albumin, Serum 4.3 gm/dL (3.4-4.8); Albumin/Globulin Ratio 1.9 (1.2-2.2); Alkaline Phosphatase 68 U/L (46-116); Anion Gap 8 (7-16); Aspartate Amino Transferase 26 U/L (0-34); BUN/Creatinine Ratio 20 Ratio (12-20); Bilirubin,Total 0.5 mg/dL (0.3-1.2); Blood Urea Nitrogen 16 mg/dL (9-23); Calcium 9.2 mg/dL (8.3-10.6); Calcium (Corrected) 9.2 mg/dL (8.5-10.1); Carbon Dioxide 28.7 mMol/L (20.0-31.0); Cardiac Risk Estimate 1.9 RATIO (3.7-5.6); Chloride 106 mMol/L (98-107); Cholesterol 140 mg/dL (132-200); Creatinine (Component) 0.8 mg/dL (0.6-1.3); Globulin 2.3 gm/dL (2.3-3.5); Glucose 101 mg/dL (74-106); HDL Cholesterol 74 mg/dL (40-60); LDL Cholesterol,Calculated 48 mg/dL (0-130); Osmolality,Calculated 286 (275-295); Potassium 4.4 mMol/L (3.4-5.1); Sodium 143 mMol/L (136-145); Thyroid Stimulating Hormone < 0.01 uIU/mL (0.55-4.78); Total Protein 6.6 gm/dL (5.7-8.2); Triglycerides 89 mg/dL (30-150); eGFR > 60 See Note
== END | disposition home or self-care (01) ==
LOC: COPL 08:59
PROVIDERS: PCP Internal Medicine; Referring Provider Physical Medicine & Rehabilitation Pain Medicine; Visit Provider Physical Medicine & Rehabilitation Pain Medicine
DX: Z00.00 Encounter for general adult medical examination without abnormal findings (principal); I10 Essential (primary) hypertension; E78.5 Hyperlipidemia, unspecified; E03.9 Hypothyroidism, unspecified; G47.30 Sleep apnea, unspecified; I25.10 Atherosclerotic heart disease of native coronary artery without angina pectoris; D51.9 Vitamin B12 deficiency anemia, unspecified; E55.9 Vitamin D deficiency, unspecified
CPT/HCPCS: 36415; 80053; 80061; 81001; 82306; 82607; 83036; 84443; 85025; 85610; 85730

== ENCOUNTER 2024-09-16 10:52 | Outpatient (AMB) | payer MEDICARE, BC, SELFPAY ==
[2024-09-16 11:13] VITALS: BP 146/71; PULSE 72; RESP 16; TEMP 36.3; O2SAT 96; BMI 25.2
--- NOTE | 2024-09-16 11:13 | ORTHONT_ITS ---
Vital signs 09/16/24 11:13 Height 1.63 m Height Method Stated Weight 67.16 kg Weight Measurement Method Standing Scale BMI 25.2 BP 146/71 H Blood Pressure Source Automatic Cuff Blood Pressure Location Right Upper Arm Position Sitting Respiration 16 Pulse 72 Pulse Source Monitor Temp 97.3 F Temp Source Temporal Artery Scan Pulse Oximetry (%) 96 Oxygen Delivery Method Room Air Med/Allergies Allergies & Medications Allergies rofecoxib (From Vioxx) Allergy (Verified 09/16/24 11:14) Rash Medication Reconciliation azelastine 137 mcg-fluticasone 50 mcg/spray nasal spray 1 spray intranasal BID 07/03/17 [History Confirmed 09/16/24] cetirizine 10 mg capsule (Zyrtec) 10 mg PO UD 07/03/17 [History Confirmed 09/16/24] levothyroxine 112 mcg tablet 112 mcg PO QDAY 07/03/17 [History Confirmed 09/16/24] montelukast 10 mg tablet 10 mg PO QPM 07/03/17 [History Confirmed 09/16/24] lisinopril 10 mg tablet 10 mg PO QDAY 07/02/23 [History Confirmed 09/16/24] ticagrelor 90 mg tablet (Brilinta) 90 mg PO BID #60 tabs 07/02/23 [Rx Confirmed 09/16/24] tramadol 100 mg tablet 100 mg PO QDAY 07/02/23 [History Confirmed 09/16/24] tramadol 50 mg tablet 50 mg PO Q12H PRN Pain 07/02/23 [History Confirmed 09/16/24] albuterol sulfate 90 mcg/actuation aerosol inhaler 2 inh inhalation Q6H PRN shortness of breath or wheezing 06/09/24 [History Confirmed 09/16/24] carvedilol 12.5 mg tablet 12.5 mg PO Q12H 06/09/24 [History Confirmed 09/16/24] estradiol 10 mcg vaginal tablet (Yuvafem) 10 mcg .Route 2 X WEEKLY 06/09/24 [History Confirmed 09/16/24] fluticasone fur. 100 mcg-umeclid 62.5 mcg-vilant 25 mcg inhalat.powder (Trelegy Ellipta) 1 inh inhalation Q24H 06/09/24 [History Confirmed 09/16/24] rosuvastatin 40 mg tablet 40 mg PO DAILY 06/09/24 [History Confirmed 09/16/24] acetaminophen 500 mg tablet (Acetaminophen Extra Strength) 1,000 mg (2 x 500 mg) PO Q6H PRN pain #90 tabs 06/14/24 [Rx Confirmed 09/16/24] aspirin 81 mg tablet,delayed release 81 mg PO BID #60 tabs 06/14/24 [Rx Confirmed 09/16/24] azerlastine 06/14/24 [History Confirmed 09/16/24] doxycycline hyclate 100 mg tablet 100 mg PO BID #14 tabs 06/14/24 [Rx Confirmed 09/16/24] gabapentin 300 mg capsule 300 mg PO .qhs #30 caps 06/14/24 [Rx Confirmed 09/16/24] sennosides 8.6 mg-docusate sodium 50 mg tablet (Senna-S) 1 tab-cap PO QDAY #30 tabs 06/14/24 [Rx Confirmed 09/16/24] oxycodone 5 mg tablet 5 mg PO Q6H PRN pain #28 tabs 06/21/24 [Rx Confirmed 09/16/24] Exam Exam Patient is in no acute distress and is cooperative with the examination today. Patient has antalgic gait Breathing is nonlabored. In no respiratory distress. Bilateral extremities were evaluated and demonstrates sensation intact to light touch. Palpable pedal pulses are present. No significant edema is present. Bilateral hips were examined. The patient has no pain with log roll of the hips. Internal rotation to 30 degrees and external rotation to 30 degrees is painless. Negative FADIR. Left knee was examined today. The right knee is in reasonable alignment. Range of motion from 0-120 degrees. Knee is stable to varus and valgus as well as AP translation with <5mm. Patient has a negative McMurrays. There is no pain with patellofemoral compression and no crepitus noted. The knee is nontender to palpation. Right knee range of motion is 0 to 110 degrees. Incision looks clean dry and intact Assessment and Plan Problem List (1) Pain in right knee: Status: Acute (2) Recurrent right knee instability: Status: Acute Plan: Janie is a 73-year-old female with right knee instability status post right total knee replacement. She is status post revision knee replacement with upsizing of the poly. She is doing well Advanced Care Planning Discussion Advance care planning discussed with:: patient Office Procedures GNS Level of Care Nursing/Assessment Patient Status: Established Patient Nursing Assessment/Reassesment: Medication Reconciliation, Update PMH in EMR and Vital Signs Coordination of Care: Complex Care and Chronic Disease 1-5, Education Complex Pt/Fam, Consent,records obtained, informed consent, Results/Orders obtained and Staff clarify orders Established Patient Charge Established Patient Point Assignment: 95 Established Patient Point Charge: EP Level 3 (80-115) MA Intake Visit Data Collection New Patient or Established: Established Patient (seen at [facility] within 3 years) Reason for Visit:: FOLLOW UP ON RIGHT KNEE Seen by Clinical Staff ONLY (RN/MA): No 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 PCP or OBGYN visit in last 3 months: Yes Hx Now: No Do You Feel Safe at Home: Yes Authorities Contacted: N/A Questionairres Past Medical History Past Medical History Have you ever been diagnosed with any of the following: Neurological Problems Seizures: No Cardiology Problems Myocardial Infarction: No Cardiac Arrhythmia: No Atrial Fibrillation: No Angina: No Heart Murmur: No Coronary Artery Disease: Yes Atherosclerotic Heart Disease: No Peripheral Vascular Disease: No Hypercholesterolemia: Yes Aneurysm: No Congestive Heart Failure: No Congenital Heart Disease: No Valvular Heart Disease: No Rheumatic Fever: No Cardiomyopathy: No Edema: No Pericarditis: No Cellulitis: No Deep Vein Thrombosis: No Hypertension: Yes Hypotension: No Varicose Veins: No Respiratory Problems Chronic Obstructive Pulmonary Disease (COPD): Yes Asthma: Yes (USES INHALER NEEDED) Sleep Apnea: Yes (USES CPAP MACHINE) Smoking: No Smoking Exposure: No Stomache/Intestinal Problems Hepatitis: No Gall Bladder Disease: Yes Gastroesophageal Reflux Disease: Yes Genital/Urinary Problems Renal Disease: No Kidney Stones: No Reproductive Problems Breast Cancer: No Endometriosis: Yes Genital Herpes: No Gonorrhea: No Pelvic Inflammatory Disease: No Previous Pregnancies: Yes (X1) Syphilis: No Uterine Prolapse: No Musculoskeletal Problems Arthritis: Yes Osteoporosis: No Degenerative Disk Disease: Yes Carpal Tunnel Syndrome: No Head,Eye,Nose,Throat Problems Cataracts: Yes Glaucoma: No Blind: No Retinal Detachment: No Macular Degeneration: No Chronic Ear Infections: No Deafness: No Eye Prosthesis: No Endocrine Problems Diabetes Mellitus Type 1: No Diabetes Mellitus Type 2: No Hyperthyroidism: No Hypothyroidism: Yes Other Problems Down Syndrome: No Developmental Delay: No Shingles: No Falls: Yes Blood Transfusions: No Blood Transfusion Reaction: No Anesthesia Reactions: No MRSA: No Chicken Pox: Yes Measles: Yes Mumps: Yes Pertussis: No Cancer: No Surgical History Total Knee Replacement: Yes (RIGHT 2017) Hysterectomy: No Pacemaker: No Thyroidectomy: No Subjective Visit Visit for: follow up visit and knee (RIGHT KNEE ) Immunization / Flu Flu Vaccine in the Last 12 Months: Yes Flu Vaccine Exclusion Criteria: Already Received History of Present Illness Chief complaint: F/U 6 WKS POST OP Janie is a pleasant 73-year-old female with right knee pain status post right total knee replacement. We did upsizing of the poly and she is doing well. Her left knee is bothering her significantly. 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
== END 2024-09-16 11:17 | disposition home or self-care (01) ==
PROVIDERS: PCP Orthopaedic Surgery; Referring Provider Orthopaedic Surgery; Supervising Provider Orthopaedic Surgery Adult Reconstructive Orthopaedic Surgery; Visit Provider Orthopaedic Surgery Adult Reconstructive Orthopaedic Surgery
DX: M25.561 Pain in right knee (principal); M23.51 Chronic instability of knee, right knee; Z96.651 Presence of right artificial knee joint; I10 Essential (primary) hypertension; E78.00 Pure hypercholesterolemia, unspecified; I25.10 Atherosclerotic heart disease of native coronary artery without angina pectoris; J44.9 Chronic obstructive pulmonary disease, unspecified; K21.9 Gastro-esophageal reflux disease without esophagitis; E03.9 Hypothyroidism, unspecified
CPT/HCPCS: 99213; G0463

== ENCOUNTER 2024-10-15 13:59 | Outpatient (AMB) | payer MEDICARE, BC, SELFPAY ==
[2024-10-15 14:09] VITALS: BP 163/73; PULSE 78; RESP 18; TEMP 35.8; O2SAT 94; BMI 25.2
--- NOTE | 2024-10-15 14:09 | ORTHONT_ITS ---
Vital signs 10/15/24 14:09 Height 1.63 m Height Method Stated Weight 67.188 kg Weight Measurement Method Standing Scale BMI 25.2 BP 163/73 H Blood Pressure Source Automatic Cuff Blood Pressure Location Left Upper Arm Position Sitting Respiration 18 Pulse 78 Pulse Source Monitor Temp 96.5 F L Temp Source Temporal Artery Scan Pulse Oximetry (%) 94 L Oxygen Delivery Method Room Air Med/Allergies Allergies & Medications Allergies rofecoxib (From Vioxx) Allergy (Verified 10/15/24 14:21) Rash Medication Reconciliation azelastine 137 mcg-fluticasone 50 mcg/spray nasal spray 1 spray intranasal BID 07/03/17 [History Confirmed 10/15/24] cetirizine 10 mg capsule (Zyrtec) 10 mg PO UD 07/03/17 [History Confirmed 10/15/24] levothyroxine 112 mcg tablet 112 mcg PO QDAY 07/03/17 [History Confirmed 10/15/24] montelukast 10 mg tablet 10 mg PO QPM 07/03/17 [History Confirmed 10/15/24] lisinopril 10 mg tablet 10 mg PO QDAY 07/02/23 [History Confirmed 10/15/24] ticagrelor 90 mg tablet (Brilinta) 90 mg PO BID #60 tabs 07/02/23 [Rx Confirmed 10/15/24] tramadol 100 mg tablet 100 mg PO QDAY 07/02/23 [History Confirmed 10/15/24] tramadol 50 mg tablet 50 mg PO Q12H PRN Pain 07/02/23 [History Confirmed 10/15/24] albuterol sulfate 90 mcg/actuation aerosol inhaler 2 inh inhalation Q6H PRN shortness of breath or wheezing 06/09/24 [History Confirmed 10/15/24] carvedilol 12.5 mg tablet 12.5 mg PO Q12H 06/09/24 [History Confirmed 10/15/24] estradiol 10 mcg vaginal tablet (Yuvafem) 10 mcg .Route 2 X WEEKLY 06/09/24 [History Confirmed 10/15/24] fluticasone fur. 100 mcg-umeclid 62.5 mcg-vilant 25 mcg inhalat.powder (Trelegy Ellipta) 1 inh inhalation Q24H 06/09/24 [History Confirmed 10/15/24] rosuvastatin 40 mg tablet 40 mg PO DAILY 06/09/24 [History Confirmed 10/15/24] acetaminophen 500 mg tablet (Acetaminophen Extra Strength) 1,000 mg (2 x 500 mg) PO Q6H PRN pain #90 tabs 06/14/24 [Rx Confirmed 10/15/24] aspirin 81 mg tablet,delayed release 81 mg PO BID #60 tabs 06/14/24 [Rx Confirmed 10/15/24] azerlastine 06/14/24 [History Confirmed 10/15/24] doxycycline hyclate 100 mg tablet 100 mg PO BID #14 tabs 06/14/24 [Rx Confirmed 10/15/24] gabapentin 300 mg capsule 300 mg PO .qhs #30 caps 06/14/24 [Rx Confirmed 10/15/24] sennosides 8.6 mg-docusate sodium 50 mg tablet (Senna-S) 1 tab-cap PO QDAY #30 tabs 06/14/24 [Rx Confirmed 10/15/24] oxycodone 5 mg tablet 5 mg PO Q6H PRN pain #28 tabs 06/21/24 [Rx Confirmed 10/15/24] Exam Exam Patient is in no acute distress and is cooperative with the examination today. Patient has antalgic gait Breathing is nonlabored. In no respiratory distress. Bilateral extremities were evaluated and demonstrates sensation intact to light touch. Palpable pedal pulses are present. No significant edema is present. Bilateral hips were examined. The patient has no pain with log roll of the hips. Internal rotation to 30 degrees and external rotation to 30 degrees is painless. Negative FADIR. Left knee was examined today. The right knee is in reasonable alignment. Range of motion from 0-120 degrees. Knee is stable to varus and valgus as well as AP translation with <5mm. Patient has a negative McMurrays. There is no pain with patellofemoral compression and no crepitus noted. The knee is nontender to palpation. Right knee range of motion is 0 to 110 degrees. Incision looks clean dry and in tact X-rays demonstrate significant arthritis of the left knee with complete obliteration of the medial joint space. Assessment and Plan Problem List (1) Pain in right knee: Status: Acute (2) Recurrent right knee instability: Status: Acute Plan: Janie is a 73-year-old female with right knee instability status post right total knee replacement. She is status post revision knee replacement with upsizing of the poly. She has significant left knee pain and left knee arthritis. We discussed different treatment options. She would like a hyaluronic acid injection today Recommend knee hyaluronic acid injection as patient would like to proceed with conservative treatment at this time. The risks and benefits of the procedure were reviewed with the patient and patient gave verbal consent to continue with the procedure. Procedure: performed by Dr. Marcus Using sterile technique the left knee was thoroughly prepped with alcohol, and the entire syringe of Synvisc 1 was injected without resistance into the medial tibial femoral joint space. The patient tolerated the procedure. Advanced Care Planning Discussion Advance care planning discussed with:: patient Office Procedures GNS Level of Care Nursing/Assessment Patient Status: Established Patient Nursing Assessment/Reassesment: Medication Reconciliation, Update PMH in EMR and Vital Signs Coordination of Care: Complex Care and Chronic Disease 1-5, Education Complex Pt/Fam, Consent,records obtained, informed consent, Results/Orders obtained and Staff clarify orders Established Patient Charge Established Patient Point Assignment: 95 Established Patient Point Charge: EP Level 3 (80-115) Surgical Proc/IM SQ injection Major Surgical Procedure: Yes (GEL INJECTION) Medication Given Medication Given Medication Given: Yes Documented Dose Given: 1 Route: Infiitration Office Meds Hyalgan 10 mg/mL intra-articular syringe Performing Provider: Bryan Marcus MD Performing Location: [facility] Administered by: Bryan Marcus MD on 10/15/24 14:20 Dose Route Admin Location Dispensed Lot Number Expiration Date [facility] N[employer] 20 mg intra-articular 2 mL [id number] 04/22/27 [address]-1 MA Intake Visit Data Collection New Patient or Established: Established Patient (seen at [facility] within 3 years) Reason for Visit:: F/U GEL INJ Seen by Clinical Staff ONLY (RN/MA): No Manager Sales And Marketing Required: No PCP or OBGYN visit in last 3 months: Yes Hx Now: No Do You Feel Safe at Home: Yes Authorities Contacted: N/A Questionairres Past Medical History Past Medical History Have you ever been diagnosed with any of the following: Neurological Problems Seizures: No Cardiology Problems Myocardial Infarction: No Cardiac Arrhythmia: No Atrial Fibrillation: No Angina: No Heart Murmur: No Coronary Artery Disease: Yes Atherosclerotic Heart Disease: No Peripheral Vascular Disease: No Hypercholesterolemia: Yes Aneurysm: No Congestive Heart Failure: No Congenital Heart Disease: No Valvular Heart Disease: No Rheumatic Fever: No Cardiomyopathy: No Edema: No Pericarditis: No Cellulitis: No Deep Vein Thrombosis: No Hypertension: Yes Hypotension: No Varicose Veins: No Respiratory Problems Chronic Obstructive Pulmonary Disease (COPD): Yes Asthma: Yes (USES INHALER NEEDED) Sleep Apnea: Yes (USES CPAP MACHINE) Smoking: No Smoking Exposure: No Stomache/Intestinal Problems Hepatitis: No Gall Bladder Disease: Yes Gastroesophageal Reflux Disease: Yes Genital/Urinary Problems Renal Disease: No Kidney Stones: No Reproductive Problems Breast Cancer: No Endometriosis: Yes Genital Herpes: No Gonorrhea: No Pelvic Inflammatory Disease: No Previous Pregnancies: Yes (X1) Syphilis: No Uterine Prolapse: No Musculoskeletal Problems Arthritis: Yes Osteoporosis: No Degenerative Disk Disease: Yes Carpal Tunnel Syndrome: No Head,Eye,Nose,Throat Problems Cataracts: Yes Glaucoma: No Blind: No Retinal Detachment: No Macular Degeneration: No Chronic Ear Infections: No Deafness: No Eye Prosthesis: No Endocrine Problems Diabetes Mellitus Type 1: No Diabetes Mellitus Type 2: No Hyperthyroidism: No Hypothyroidism: Yes Other Problems Down Syndrome: No Developmental Delay: No Shingles: No Falls: Yes Blood Transfusions: No Blood Transfusion Reaction: No Anesthesia Reactions: No MRSA: No Chicken Pox: Yes Measles: Yes Mumps: Yes Pertussis: No Cancer: No Surgical History Total Knee Replacement: Yes (RIGHT 2017) Hysterectomy: No Pacemaker: No Thyroidectomy: No Subjective Visit Visit for: follow up visit, knee (RIGHT KNEE ) and injections (GEL) Immunization / Flu Flu Vaccine in the Last 12 Months: Yes Flu Vaccine Exclusion Criteria: Already Received History of Present Illness Chief complaint: F/U 6 WKS POST OP . Janie is a pleasant 73-year-old female with right knee pain status post right total knee replacement. We did upsizing of the poly and she is doing well. Her left knee is bothering her significantly. She would like to get a gel injection in November before her trip in December. She has [id number] arthritis of her left knee Personal History Occupation: [employer] Red flag PMH: none Pain Pain level (0-10): 3 Pain duration: 05/2024 Pain location: anterior Pain quality: aching and other (specify) (SWELLING) Pain timing: increases with activity and stairs Associated signs & symptoms: stiffness Ambulatory data Ambulatory device: none Walking distance (minutes): 5 Treatments Number of previous injections: 1 Improvement with previous injections: Yes Number of Physical Therapy sessions: 12 Improvement with PT: Yes Improvement with NSAIDS: n/a Review of Systems Review of Systems: All systems negative unless otherwise noted in HPI.
== END 2024-10-15 14:24 | disposition home or self-care (01) ==
LOC: HODSRG 13:59
PROVIDERS: PCP Orthopaedic Surgery; Referring Provider Orthopaedic Surgery; Supervising Provider Orthopaedic Surgery Adult Reconstructive Orthopaedic Surgery; Visit Provider Orthopaedic Surgery Adult Reconstructive Orthopaedic Surgery
DX: M25.561 Pain in right knee (principal); M23.51 Chronic instability of knee, right knee; Z96.651 Presence of right artificial knee joint; M25.562 Pain in left knee; M17.12 Unilateral primary osteoarthritis, left knee; I10 Essential (primary) hypertension; E78.00 Pure hypercholesterolemia, unspecified; I25.10 Atherosclerotic heart disease of native coronary artery without angina pectoris; G47.30 Sleep apnea, unspecified; K21.9 Gastro-esophageal reflux disease without esophagitis; J44.9 Chronic obstructive pulmonary disease, unspecified
CPT/HCPCS: 20610; 99213; G0463; J7325

== ENCOUNTER → 2024-12-02 | Outpatient (CLI) | payer MEDICARE, BC, SELFPAY ==
[2024-12-02 09:39] LABS: Alanine Aminotransferase 21 U/L (10-49); Albumin, Serum 4.5 gm/dL (3.4-4.8); Albumin/Globulin Ratio 2.1 (1.2-2.2); Alkaline Phosphatase 75 U/L (46-116); Anion Gap 8 (7-16); Aspartate Amino Transferase 26 U/L (0-34); BUN/Creatinine Ratio 15 Ratio (12-20); Bilirubin,Total 0.6 mg/dL (0.3-1.2); Blood Urea Nitrogen 15 mg/dL (9-23); Calcium 9.6 mg/dL (8.3-10.6); Calcium (Corrected) 9.6 mg/dL (8.5-10.1); Carbon Dioxide 28.7 mMol/L (20.0-31.0); Cardiac Risk Estimate 2.0 RATIO (3.7-5.6); Chloride 107 mMol/L (98-107); Cholesterol 150 mg/dL (132-200); Creatinine (Component) 1.0 mg/dL (0.6-1.3); Globulin 2.1 gm/dL (2.3-3.5); Glucose 101 mg/dL (74-106); HDL Cholesterol 74 mg/dL (40-60); LDL Cholesterol,Calculated 49 mg/dL (0-130); Osmolality,Calculated 287 (275-295); Potassium 4.3 mMol/L (3.4-5.1); Sodium 144 mMol/L (136-145); Total Protein 6.6 gm/dL (5.7-8.2); Triglycerides 134 mg/dL (30-150); eGFR 59 See Note
== END | disposition home or self-care (01) ==
LOC: COPL 08:42
PROVIDERS: PCP Internal Medicine; Referring Provider Internal Medicine; Visit Provider Internal Medicine
DX: I10 Essential (primary) hypertension (principal); E78.5 Hyperlipidemia, unspecified
CPT/HCPCS: 36415; 80053; 80061